=== PATIENT | female | born 1985 | race Caucasian/White ===

== ENCOUNTER 2017-09-27 16:28 | Inpatient (IN) | payer OTHER ==
[~2017-09-27] VITALS: Ht 157.5 cm; Wt 66.0 kg
--- NOTE | 2017-09-27 18:11 | PR ---
[facility] [address] [facility] [place] [address] Signed Progress Notes IP Datetime Report Generated by CPN: 09/27/2017 18:11 PROGRESS NOTES: [id number] VITAL SIGNS: [id number] Vital Signs: Reviewed; Within Normal Limits EXAM: [id number] Dilatation: 2.0 Effacement: 25 Station: -2 MEMBRANES: [id number] Membrane Status: Intact ROM Note: AROM - clear fluid Comments: Discussed findings/plan with patient Continuous monitoring May have Epidural when ready Fetus A: [id number] FHR Baseline: 120 Variability: Moderate 6-25bpm Accelerations: 15X15 Presentation: Vertex Fetus B: [id number] Signing Physician: Nesha Puri MD CC: *Electronically Signed* 09/27/17 1811 NESHA PURI MD PATIENT NAME: FARHAD NAZARIO PROGRESS NOTE DATE OF : 89 PHYSICIAN: NESHA PURI MD RPT #: [id number] REPORT IS CONFIDENTIAL AND NOT TO BE RELEASED WITHOUT AUTHORIZATION
[2017-09-27] MEDS ORDERED: PRENATA CHEWAB1 EACH PO (22:13)
--- NOTE | 2017-09-27 23:33 | PR ---
[facility] [address] [facility] [place], [place] [address] Signed Progress Notes IP Datetime Report Generated by CPN: 09/27/2017 23:32 PROGRESS NOTES: [id number] Impression: Slow Progression of Labor Procedures: Intrauterine Pressure Catheter; Scalp Electrode Plan: Continue present management VITAL SIGNS: [id number] Vital Signs: Reviewed; Within Normal Limits EXAM: [id number] Dilatation: 4.0 Effacement: 80 Station: -1 Uterine Contractions: every 2-5 minutes MEMBRANES: [id number] Membrane Status: Ruptured Amniotic Fluid Color: Clear ROM Note: AROM - clear fluid Comments: Contractions spacing out, but having some late decels IUPC and FEKG O2 and Left side Fetus A: [id number] FHR Baseline: 125 Variability: Moderate 6-25bpm Accelerations: 15X15 Decelerations: Late Presentation: Vertex Fetus B: [id number] Signing Physician: Nesha Puri MD CC: *Electronically Signed* 09/27/17 2332 NESHA PURI MD PATIENT NAME: FARHAD NAZARIO PROGRESS NOTE DATE OF : 89 PHYSICIAN: NESHA PURI MD RPT #: [id number] REPORT IS CONFIDENTIAL AND NOT TO BE RELEASED WITHOUT AUTHORIZATION
--- NOTE | 2017-09-28 01:52 | NUR ---
09/28/17 0152 ROSE,BILLY Herbert 0100: PATIENT ABLE TO OPEN EYES BUT UNABLE TO VERBALIZE. 0115: DR. PURI IN TO SPEAK WITH PATIENT/FAMILY. PATIENT ABLE TO SAY A FEW WORDS. 0130: PATIENT C/O BEING DIZZY. BABY ON MOM'S CHEST. FATHER OF BABY NEXT TO BED WATCHING BABY WITH MOM. 0135: PATIENT SHAKING. C/O FEELING COLD. COVERED IN WARM BLANKETS. FBC RN IN TO HELP BABY BREASTFEED. 0140: WARM BLANKET PLACED AROUND PATIENT'S HEAD. 0147: REPORT GIVEN TO FBC RN.
--- NOTE | 2017-09-28 14:21 | OR ---
[facility] [address] [facility] [place], [place] [address] Signed DATE OF OPERATION: 09/28/2017 SURGEON: Sravan Hall MD PREOPERATIVE DIAGNOSIS: bradycardia and growth restriction. POSTOPERATIVE DIAGNOSIS: bradycardia and growth restriction plus velamentous insertion of the cord. PROCEDURE: Emergency primary low transverse segment section, delivery of live female . MANAGER PHOTO: Dr. Ruiz. ANESTHESIA: Epidural with IV sedation. ESTIMATED BLOOD LOSS: 700 mL. COMPLICATIONS: None. DRAINS: Elias to bladder. FINDINGS: Live female , Apgars 8 and 9. Weight 5 pounds 1 ounce. The placenta had large wide velamentous insertion of the cord, there was a nuchal cord x1. Normal uterus, normal tubes, and ovaries, bilateral. DESCRIPTION OF PROCEDURE: The patient was brought to the operating room, placed in supine position. After epidural anesthesia was obtained, the patient was prepped and draped in usual sterile fashion. Just before prep, the heart rate appeared to be going down again, so the procedure was done quickly and the patient required IV sedation due to epidural not completely working. Pfannenstiel skin incision was made with a scalpel and extended through Electronically Signed By: SRAVAN HALL MD 09/28/17 1421 PATIENT NAME: FARHAD NAZARIO OPERATIVE REPORT DATE OF : 89 PHYSICIAN: SRAVAN HALL MD REPORT #: [id number] REPORT IS CONFIDENTIAL AND NOT TO BE RELEASED WITHOUT AUTHORIZATION [facility] [address] [place], [place] [address] Signed subcutaneous tissue. The fascia was nicked with scalpel and extended in a transverse fashion using curved scissors. The underlying abdominal musculatures were bluntly and sharply along the midline. Peritoneum was grasped with hemostats, elevated, and nicked with scissors and extended in vertical fashion. The Nate self-retaining retractor was then inserted into the incision. A lower uterine segment was identified and nicked with the scalpel and extended in a transverse fashion using finger dissection, and clear fluid came from the incision. The infant's head was somewhat wedged in the pelvis, but the head was delivered from the incision. Cord was removed from around the neck and the rest of the infant easily delivered from the incision. The mouth and nose were suctioned bulb syringe. The cord was doubly clamped and cut. passed off table in good condition to the waiting nurse. Cord gases were obtained and then the placenta manually removed and the uterine cavity explored with lap pad to remove any retained membranes. The placenta was sent to Pathology. An angled stitch of #0 Monocryl was placed at one end of the incision. A running locking stitch of #0 Monocryl starting at the other end used to close incision. Second running stitch of #0 Monocryl was used to imbricate the 1st layer. Good hemostasis was obtained. The entire pelvis was irrigated, suctioned, and examined. Superficial bleeding spots were cauterized with the Bovie. When good hemostasis was obtained, the Nate retractor was removed and a sheath of ACell was placed over the lower uterine segment. The anterior wall peritoneum was then closed using running stitch of 2-0 Vicryl suture. The abdominal musculature was reapproximated using interrupted stitches of #0 Vicryl suture. The abdominal wall was then irrigated, suctioned, and examined. The bleeding spots were cauterized with the Bovie. Powdered ACell was sprinkled on the abdominal muscles to help with healing and the fascia closed using 2 running stitches of 0 Vicryl suture meeting in the midline. Subcutaneous tissue was irrigated, suctioned, and examined, any bleeding spots were cauterized with the Bovie. Subcutaneous tissue was closed using interrupted stitches of 3-0 Vicryl sutures. The skin was reapproximated using skin clips. The patient tolerated the procedure well and went to recovery room in good condition. All sponge, needle, and instrument counts were correct at the end of procedure; then placenta was sent to Pathology and cord gases sent to the lab. Sravan Hall MD MJRashard/MODL Electronically Signed By: SRAVAN HALL MD 09/28/17 1421 PATIENT NAME: FARHAD NAZARIO OPERATIVE REPORT DATE OF : 89 PHYSICIAN: SRAVAN HALL MD REPORT #: [id number] REPORT IS CONFIDENTIAL AND NOT TO BE RELEASED WITHOUT AUTHORIZATION [facility] [address] [place] [address] Signed /[id number] cc: Gail Ruiz MD Electronically Signed By: SRAVAN HALL MD 09/28/17 1421 PATIENT NAME: FARHAD NAZARIO OPERATIVE REPORT DATE OF : 89 PHYSICIAN: SRAVAN HALL MD REPORT #: [id number] REPORT IS CONFIDENTIAL AND NOT TO BE RELEASED WITHOUT AUTHORIZATION
== END 2017-10-01 12:00 | disposition home or self-care (01) | DRG 765 ==
LOC: FBC 16:28
PROVIDERS: ADMIT General Practice
PROC: 10D00Z1 Extraction of Products of Conception, Low, Open Approach (ICD-10-PCS; principal; 2017-09-28 00:16)
DX: O76 Abnormality in fetal heart rate and rhythm complicating labor and delivery (principal); O36.5930 Maternal care for other known or suspected poor fetal growth, third trimester, not applicable or unspecified; Z37.0 Single live birth; Z3A.37 37 weeks gestation of pregnancy; O69.1XX0 Labor and delivery complicated by cord around neck, with compression, not applicable or unspecified
CPT/HCPCS: 01960; 01961; 36415; 82803; 85027; 90707; C1763; J2250; J2274; J2370; J2405; J2590; J2795; J3010; J3105

== ENCOUNTER 2017-10-06 19:46 | Observation (INO) | payer OTHER ==
[~2017-10-06] VITALS: Ht 208.3 cm; Wt 61.8 kg
[~2017-10-06 19:46] MED LIST: PRENATA CHEWAB1 EACH PO
[2017-10-06] MEDS ORDERED: PERCOCET 5-3251 EACH PO (20:00)
[2017-10-06] MEDS ORDERED: IBUPROFEN800 MG PO (20:01)
--- NOTE | 2017-10-06 23:10 | NUR ---
PT ARRIVED TO MS UNIT. FAMILY IN ROOM. PT'S SHE GAVE TO ON 09/28/17 IN ROOM WELL. NO C/O PAIN. VS OBTAINED. WATER PITCHER FILLED. SNACK DELIVERED. IVF INFUSING W/O DIFFICULTY.
--- NOTE | 2017-10-07 00:44 | NUR ---
PT RESTING IN BED. SNACK DELIVERED. TOILETING OFFERED. PT DENIES FURTHER NEEDS. CALL MACIAS IN REACH.
--- NOTE | 2017-10-07 03:07 | NUR ---
PT UP TO BATHROOM WITH ASSIST. REPLACED PERIPAD. SMALL AMOUNT OF BROWN DRAINAGENOTED ON PAD. SMALL AMOUNT OF CLOTTED BLOOD IN URINE. PT DENIES PAIN. LUNGS CLEAR, HR REG, ACTIVE BS. +2 EDEMA BLE. PT STATES HER FEET HAVE BEEN SWOLLEN EVER SINCE SHE GAVE ( ON 09/28). PT FINISHED PUMPING. CHANGING BABY'S DIAPER. PT DENIES DIZZIESS, APPEARS TO BE STEADY ON FEET.I TOLD HER SHE MAY BE UP AD KARYN INDEPENDENTLY. CALL MACIAS IN REACH.
--- NOTE | 2017-10-07 04:37 | NUR ---
PT SLEEPING. BABY IN ROOM. CALL MACIAS IN REACH.
--- NOTE | 2017-10-07 05:03 | NUR ---
PT INDEPENDENT IN ROOM. IN ROOM WITH PT. VS STABLE. VOIDING WELL. NO C/O PAIN.
--- NOTE | 2017-10-07 06:30 | NUR ---
PT RESTING IN CHAIR WITH BABY. REQUESTED FOR MORE SNACKS. I SHOWED HER THE BREAKFAST MENU. GRAVITY FLOW IRRIGATOR IN TO TAKE BREAKFAST ORDER. PT DENIES FURTHER NEEDS. CALL MACIAS IN REACH.
--- NOTE | 2017-10-07 07:39 | NUR ---
BEDSIDE REPORT FROM AMELIA. PATIENT UP TO CHAIR, DENIES PAIN. IV FLUID INFUSING. BABY IN ROOM IN BASINET SLEEPING. SIGNIFICANT OTHER ALSO IN ROOM. NO APPARENT DISTRESS NOTED.
--- NOTE | 2017-10-07 10:00 | NUR ---
SHIFT ASSESSMENT COMPLETED. PATIENT DENIES NAUSEA. REPORTS LLQ PAIN NEAR THE INCISION SITE. INCISION IS WNL TENDER TO PALPATION. STERI STRIP IN PLACE. PATIENT HAD A 99.1 TEMP. PATIENT WAS MEDICATED FOR PAIN.
--- NOTE | 2017-10-07 11:04 | NUR ---
IN ROOM TO CHECK ON PATIENT. PATIENT REPORT RELIEF OF PAIN. RESTING IN BED AT THIS TIME. TEMP DOWN TO 98.8. NO APPARENT DISTRESS NOTED. BABY SLEEPING IN [facility].
--- NOTE | 2017-10-07 11:18 | NUR ---
DR KEY WAS IN ROOM TO EVALUATE PATIENT AND DISCUSS PLAN OF CARE. ALL QUESTIONS ANSWERED.
--- NOTE | 2017-10-07 14:25 | NUR ---
PATIENT RESTING IN BED, DENIES PAIN AND NAUSEA. REPORTS THAT THE PAIN IN HER LOWER ABD COMES AND GOES. MILD VAGINAL BLEEDING.
--- NOTE | 2017-10-07 17:13 | NUR ---
PATIENT UP TO BATHROOM WITH NO DIFFICULTY. DENIES PAIN AND NAUSEA. FLUID INFUSING AT TKO PER MD ORDER. IV SITE PATENT, NO REDNESS, NO PAIN.
--- NOTE | 2017-10-07 18:33 | NUR ---
PATIENT HAD DONE WELL TODAY. HAD TEMP LOW GRADE FEVER THIS PM AND WENT DOWN TO 98.6. IV FLUID DECREASED TO 85. PATIENT DENIES NAUSEA FOR THIS SHIFT. REPORTED MILD LOWER ABD PAIN NEAR THE INCISION THIS AM, AND WAS MEDICATED. MILD VAGINAL BLEEDING POST . IV ABX. NOTIFY MD IF TEMP IS OVER 100.
--- NOTE | 2017-10-07 19:20 | NUR ---
RECEIVED REPORT FROM DAY SHIFT RN. PATIENT IS RESTING IN BED WATCHING TV. PATIENT DENIES ANY NEEDS AT THIS TIME. CALL LIGHT IN REACH. BABY ASLEEP IN CRIB.
--- NOTE | 2017-10-07 20:13 | NUR ---
PATIENTS 2000 MEDICATIONS GIVEN PER ORDER. BREAST MILK LABELED AND PUT INTO FRIDGE. PATIENT DENIES ANY PAIN OR NEEDS. CALL LIGHT IN REACH.
--- NOTE | 2017-10-07 22:35 | NUR ---
BABY WAS CRYING. CHECKED IN ON PATIENT. PATIENT DENIES ANY NEEDS AT THIS TIME. PATIENT IS BREAST FEEDING AT THIS TIME. CALL LIGHT IN REACH.
--- NOTE | 2017-10-08 00:48 | NUR ---
PATIENT AWOKEN WHEN THE ROOM WAS ENTERED. PATIENT DENIES ANY PAIN OR NEEDS AT THIS TIME. CALL LIGHT IN REACH.
--- NOTE | 2017-10-08 02:01 | NUR ---
PATIENT IS RESTING IN BED WITH EYES CLOSED, RR 17. CALL LIGHT IN REACH, BABY ASLEEP IN CRI AT BEDSIDE.
--- NOTE | 2017-10-08 02:53 | NUR ---
PATIENTS 0200 MEDICATIONS GIVEN PER ORDER. PATIENT DENIES ANY NEEDS CALL LIGHT IN REACH.
--- NOTE | 2017-10-08 03:14 | NUR ---
PATIENT IS AWAKE AND FEEDING BABY. PATIENT DENIES ANY NEEDS. PATIENTS TEMPERATURE TAKEN AND RECORDED. TEMP WNL. CALL LIGHT IN REACH.
--- NOTE | 2017-10-08 04:22 | NUR ---
PATIENT RESTED WELL THROUGHOUT THE SHIFT. PATIENT IS INDEPENDENT IN THE ROOM. PATIENT IS ON A REG DIET AND TOLERATING WELL, DENIES NAUSEA. PATIENT HAS BABY AT BEDSIDE AND IS . PATIENT IS AAOX3. PATIENT USES CALL LIGHT APPROPRIATELY.
--- NOTE | 2017-10-08 05:56 | NUR ---
PATIENTS MORNING MEDICATIONS GIVEN PER ORDER. PATIENT RATES PAIN AT A 1/10. PATIENT DENIES THE NEED FOR FURTHER PAIN MEDICATION AT THIS TIME. PATIENT IS BREAST FEEDING AT THIS TIME. PATIENT CONTINUES TO HAVE SLIGHT SWELLING IN HER LOWER EXT. PATIENT STATED "MY LEGS LOOK BETTER" PATIENT DENIES ANY FURTHER NEEDS. CALL LIGHT IN REACH.
--- NOTE | 2017-10-08 07:29 | NUR ---
REPORT RECIEVED FROM LUIGI LEMA. INTRODUCED TO PATIENT. NO OTHER NEEDS AT THIS TIME. PLAN OF CARE FOR THE DAY DISCUSSED
--- NOTE | 2017-10-08 08:20 | NUR ---
pateint was up in bed, she ordered breakfast and did not need any asistance
--- NOTE | 2017-10-08 08:41 | NUR ---
PATIENT SLEEPING IN BED. HOB ELEVATED. PATIENT WOKE FOR QUICK ASSESSMENT. PATIENT STATING CURRENTLY NO PAIN. LUNG SOUNDS CLEAR. PATIENT STATING SHE FEELS NO PAIN IN LOWER LEGS. MINIMAL SWELLING IN LOWER LEGS. BABY IN ROOM SLEEPING. ASKED PATIENT IF SHE NEEDED ANYTHING AT THIS TIME. INFORMED PATIENT THAT I WOULD LET HER SLEEP THIS MORNING. SHE REPORTED THAT SHE WAS VERY TIRED. MORNING MEDICATONS GIVEN. IV FLUID AND ANTIBIOTIC STARTED.
--- NOTE | 2017-10-08 09:53 | NUR ---
PATIENT WAS UP ON THE EDGE OF THE BED ETING HER BREAKFAST, I DID HER VITAL SIGNS, SHE DIDNT NEED ANY ASSISTANCE AT THE TIME.
--- NOTE | 2017-10-08 10:28 | NUR ---
PATIENT TOLERATED 75 PERCENT OF BREAKFAST. NO PAIN AT THIS TIME. PATIENT CURRENTLY UP ON EDGE OF BED. BREAST FEEDING. NO OTHER ISSUES AT THIS TIME. WATER FILLED.
--- NOTE | 2017-10-08 11:27 | NUR ---
PATIENT PUMPING AT THIS TIME. STATING THAT SHE HAS SOME MILD PAIN ON LOWER ABD. TENDER TO TOUCH. PATIENT STATING MAYBE A SMALL AMOUNT OF SWELLING IN ABD. NO REDDNESS PRESENT AT THIS TIME. INCISION IS WELL APPROXIMATED. OFFERED PAIN MEDICATION OR ICE PACK. PATIENT REFUSED STATING THAT IT COMES AND GOES AND RIGHT NOW SHE IS OKAY. WILL CONTINUE TO MONITOR.
--- NOTE | 2017-10-08 12:21 | NUR ---
ROUNDED WITH DR. KEY IN ROOM. PLAN TO DISCHARGE PATIENT HOME. PATIENT AGREED. PLAN TO DISCHARGE WITH NO ANTIBIOTICS.PATIENT STATING SHE UNDERSTOOD INFORMATION.
--- NOTE | 2017-10-08 13:23 | NUR ---
MEDICATIONS GIVEN. PATIENT HAD VITALS DONE. FINISHED LUNCH. PATIENT UP WITH BABY. PLANNING ON FINISHING ANTIBIOTICS FEEDING BABY AND THEN GETTING READY FOR DISCHARGE. INFORMED PATIENT THAT DISCHARGE PAPER WORK WAS READY WHEN SHE WAS.
--- NOTE | 2017-10-08 14:50 | NUR ---
PATIENT ASSISTED TO CAR WITH AND INTANT.
--- NOTE | 2017-10-08 15:00 | NUR ---
DICHARGE INSTRUCTIONS GIVEN. PATIENT STATING NO OTHER QUESTIONS AT THIS TIME. PATIENT REQUEST SOME SUGGESTION FOR REDUCING THE SWELLING IN HER LOWER LEGS. TEDS WERE GIVEN TO PATIENT FOR ASSISTING WITH THIS.
== END 2017-10-08 14:50 | disposition home or self-care (01) ==
LOC: ED 19:46 → MS 19:48
PROVIDERS: ADMIT Obstetrics & Gynecology
DX: O86.12 Endometritis following delivery (principal); O90.81 Anemia of the puerperium; D64.9 Anemia, unspecified; R22.43 Localized swelling, mass and lump, lower limb, bilateral; Z79.1 Long term (current) use of non-steroidal anti-inflammatories (NSAID); Z79.891 Long term (current) use of opiate analgesic
CPT/HCPCS: 36415; 80053; 81001; 83605; 85025; 85610; 85730; 87040; 93970; 96361; 96365; 96366; 96374; 96375; 96376; 99285; G0378; J0690; J7120

== ENCOUNTER 2018-12-30 18:42 | Emergency (ER) | payer OTHER ==
[~2018-12-30] VITALS: Ht 208.3 cm; Wt 61.8 kg
[~2018-12-30 18:42] MED LIST changes: +IBUPROFEN800 MG PO; +PERCOCET 5-3251 EACH PO
[2018-12-30] MEDS ORDERED: CEPHALEXIN500 MG PO (19:13)
[2018-12-30] MEDS ORDERED: ACETAMINOPHEN-1 EAC1 PO (19:13)
== END 2018-12-30 19:36 | disposition home or self-care (01) ==
LOC: ED 18:42
DX: K02.9 Dental caries, unspecified (principal); Z79.899 Other long term (current) drug therapy
CPT/HCPCS: 99282